=== PATIENT | female | born 1990 | race Two or more races ===

== ENCOUNTER 2016-04-09 10:04 | Emergency (ER) | payer MEDICAID, OTHER ==
[~2016-04-09] VITALS: Ht 152.4 cm; Wt 104.3 kg
[~2016-04-09 10:04] MED LIST: NOR5T PO; NORPTMEDS CO
[2016-04-09] MEDS ORDERED: methylPREDNISolone SOD SUCC 125 MG/2 ML VL IV ONE (10:15)
[2016-04-09] MEDS ORDERED: SODIUM CHLORIDE 0.9% 1,000 ML IV ONE (10:15)
[2016-04-09 10:42] LABS: Basophils # (auto) 0.1 uL; Basophils % (auto) 0.3 % (0.0-2.0); DEFINITIVE VIEW TRANSMISSION; Eosinophils # (auto) 0.3 uL; Eosinophils % (auto) 1.9 % (0.0-7.0); Hematocrit 47.9 % (36.0-46.0); Lymphocytes # (auto) 5.6 uL; Lymphocytes % (auto) 32.8 % (10.0-50.0); Mean Corpuscular Hemoglobin 29.5 pg (28.0-32.0); Mean Corpuscular Hgb Conc. 33.5 g/dL (32.0-36.0); Mean Corpuscular Volume 88.2 fL (80.0-100.0); Mean Platelet Volume 7.9 fL (7.4-10.4); Monocytes # (auto) 0.6 uL; Monocytes % (auto) 3.6 % (0.0-12.0); Neutrophils # (auto) 10.5 uL; Neutrophils % (auto) 61.4 % (37.0-80.0); Platelet Count (auto) 423 10^3/uL (140-450); Red Cell Distribution Width 12.5 % (11.6-16.0); White Blood Cell 17.1 10^3/uL (4.4-10.8)
[2016-04-09] MEDS ORDERED: ONDANSETRON HCL 4 MG/2 ML VIAL ONE (10:43)
[2016-04-09] MEDS ORDERED: ONDANSETRON HCL 4 MG/2 ML VIAL IV ONE (11:00)
[2016-04-09 11:24] LABS: Albumin 2.9 g/dL (3.4-5.0); BUN/Creatinine Ratio 14.7; Bilirubin, Total 0.2 mg/dL (0.2-1.0); Calcium 8.9 mg/dL (8.5-10.1); Potassium 3.7 mmol/L (3.5-5.1); Total Protein 7.4 g/dL (6.4-8.2)
[2016-04-09 11:45] LABS: Urine Bilirubin Negative (Negative); Urine Color Yellow (Yellow); Urine Glucose TRACE mg/dL (Normal); Urine Granular Cast FEW /lpf (0); Urine Hyaline Cast MANY /lpf (0 - 2); Urine Ketone Negative (Negative); Urine Mucus FEW (None Seen); Urine Nitrite Negative (Negative); Urine RBC 9 /hpf (0 - 4); Urine Squamous Epithelial Cell FEW /hpf (<5); Urine Urobilinogen Normal (Negative)
[2016-04-09 11:46] LABS: Urine Blood 2+ /uL (Negative)
[2016-04-09 11:53] VITALS: BP 118/68
== END 2016-04-09 13:11 | disposition home or self-care (01) ==
LOC: EDBD 10:04 → ER 10:10
DX: T78.40XA Allergy, unspecified, initial encounter (principal); E46 Unspecified protein-calorie malnutrition; R06.02 Shortness of breath; Z90.49 Acquired absence of other specified parts of digestive tract
CPT/HCPCS: 36415; 71010; 80053; 81001; 85025; 96361; 96374; 99285; J2405; J2930; J7030

== ENCOUNTER 2016-09-27 21:44 | Emergency (ER) | payer MEDICAID ==
[~2016-09-27] VITALS: Ht 152.4 cm; Wt 106.6 kg
[~2016-09-27 21:44] MED LIST changes: +HYDR-4663 PO; -NOR5T PO
[2016-09-27 21:45] VITALS: BP 143/89
== END 2016-09-28 02:30 | disposition left against medical advice (07) ==
LOC: EDBD 21:44 → ER 21:46
DX: T78.40XA Allergy, unspecified, initial encounter (principal); X58.XXXA Exposure to other specified factors, initial encounter; Z53.21 Procedure and treatment not carried out due to patient leaving prior to being seen by health care provider